=== PATIENT | female | born 1950 | race Hispanic/Latino ===

== ENCOUNTER 2017-12-30 13:57 | Outpatient (CLI) | payer MEDICARE | END 2017-12-30 13:58 | disposition home or self-care (01) | LOC: BICMAMMO 13:57 | PROVIDERS: ATTEND Family Medicine | DX: Z12.31 Encounter for screening mammogram for malignant neoplasm of breast (principal) | CPT/HCPCS: 77063; 77067 ==

== ENCOUNTER 2018-01-29 08:27 | Outpatient (CLI) | payer MEDICARE | END 2018-01-29 08:28 | disposition home or self-care (01) | LOC: BICMAMMO 08:27 | PROVIDERS: ATTEND Internal Medicine Rheumatology | DX: Z13.820 Encounter for screening for osteoporosis (principal); T38.0X1A Poisoning by glucocorticoids and synthetic analogues, accidental (unintentional), initial encounter | CPT/HCPCS: 77080 ==

== ENCOUNTER 2018-04-18 22:22 | Emergency (ER) | payer MEDICARE ==
[2018-04-18] MEDS ORDERED: diphenhydrAMINE 25 MG CAP ONE (22:42)
== END 2018-04-18 22:50 | disposition home or self-care (01) ==
LOC: SCSER 22:22
DX: T78.40XA Allergy, unspecified, initial encounter (principal); R21 Rash and other nonspecific skin eruption; I25.10 Atherosclerotic heart disease of native coronary artery without angina pectoris; E11.9 Type 2 diabetes mellitus without complications; E78.5 Hyperlipidemia, unspecified; I10 Essential (primary) hypertension; Z21 Asymptomatic human immunodeficiency virus [HIV] infection status
CPT/HCPCS: 99282

== ENCOUNTER 2018-12-15 15:07 | Outpatient (CLI) | payer MEDICARE ==
--- NOTE | 2018-12-15 16:26 | RAD ---
LUMBAR SPINE SERIES WITH OBLIQUES 6 VIEWS: HISTORY: Low back pain and right side sciatica. FINDINGS: There is a mild scoliotic deformity to the spine convex to the left. The vertebral bodies are normal in height. There is marked disk narrowing at L2-3, L4-5, and L5-S1. There is a minimal spondylolis thesis of L4 on L5. Flexion and extension views were performed but show little motion in either flex ion or extension. IMPRESSION: Moderately severe osteoarthritic changes of the spine. POS: TPC
== END 2018-12-15 15:08 | disposition home or self-care (01) ==
LOC: BICRAD 15:07
PROVIDERS: ATTEND Internal Medicine Rheumatology
DX: M54.41 Lumbago with sciatica, right side (principal); M47.816 Spondylosis without myelopathy or radiculopathy, lumbar region
CPT/HCPCS: 72100

== ENCOUNTER 2019-02-03 08:36 | Outpatient (CLI) | payer MEDICARE ==
--- NOTE | 2019-02-19 14:35 | MMO ---
Bilateral MAMMO Bilat Screen [facility]JONNATHAN. CLINICAL HISTORY: Patient is 69 years old and is seen for screening. The patient has the following family history of breast cancer: cousin gender unknown. The patient has no personal history of cancer. VIEWS: The views performed were: bilateral craniocaudal with tomosynthesis and bilateral mediolateral oblique with tomosynthesis. FILMS COMPARED: The present examination has been compared to prior imaging studies performed at [facility] on 05/03/2004, 09/21/2010, 12/13/2016 and 12/30/2017, and at [facility][1] on 07/25/2000 and 10/17/2001. MAMMOGRAM FINDINGS: There are scattered fibroglandular densities. There are no suspicious masses, suspicious calcifications, or new areas of architectural distortion. IMPRESSION: THERE IS NO MAMMOGRAPHIC EVIDENCE OF MALIGNANCY. A ROUTINE FOLLOW-UP MAMMOGRAM IN 1 YEAR IS RECOMMENDED. THE RESULTS OF THIS EXAM WERE SENT TO THE PATIENT. ACR BI-RADS Category 1 - Negative MAMMOGRAPHY NOTE: 1. A negative mammogram report should not delay a biopsy if a dominant of clinically suspicious mass is present. 2. Approximately 10% to 15% of breast cancers are not detected by mammography. 3. Adenosis and dense breasts may obscure an underlying neoplasm.
== END 2019-02-03 08:37 | disposition home or self-care (01) ==
LOC: BICMAMMO 08:36
PROVIDERS: ATTEND Family Medicine
DX: Z12.31 Encounter for screening mammogram for malignant neoplasm of breast (principal); Z80.3 Family history of malignant neoplasm of breast
CPT/HCPCS: 77063; 77067

== ENCOUNTER 2019-02-10 10:37 | Outpatient (CLI) | payer MEDICARE ==
--- NOTE | 2019-02-10 11:58 | MRI ---
[facility] lumbar spine: 02/10/2019 COMPARISON: None HISTORY: Low back pain, recent injury in December 2018 TECHNIQUE: Multiplanar multisequence MR imaging of the lumbar spine obtained without contrast FINDINGS: Fluid signal intensity is noted within the facet joints bilaterally at L2-3, L3-4, and L4-5 . No focal area of osseous marrow edema is noted. No significant anterolisthesis or retrolisthesis noted within the lumbar spine. Assuming 5 lumbar type vertebral bodies, the conus medullaris terminates at L1. T12-L1: Unremarkable L1-2: Mild disc space narrowing and disc bulge. Mild bilateral facet hypertrophy. No central canal or neural foraminal stenosis. L2-3: Disc space narrowing and disc desiccation noted with disc bulge and significant bilateral facet hypertrophy. No significant central canal or neural foraminal stenosis. L3-4: Disc space narrowing with disc desiccation and disc bulge. No significant central canal stenosi s. Significant bilateral facet hypertrophy. Moderate right neural foraminal stenosis. No significant left neural foraminal stenosis. L4-5: Disc space narrowing and disc desiccation noted with disc bulge. Superimposed disc herniation i n the left paracentral region with 8 mm of inferior migration. Severe bilateral facet hypertrophy. Fi ndings lead to severe central canal stenosis/severe left lateral recess stenosis. Moderate left neura l foraminal stenosis. Mild right neural foraminal stenosis. L5-S1: Bilateral facet hypertrophy, left greater than right. There is disc space narrowing and disc d esiccation and disc bulge with a small left paracentral disc herniation demonstrating mild inferior m igration. Mild associated left lateral recess stenosis. No significant central canal or right neural foraminal stenosis. Mild left neural foraminal stenosis noted. The imaged retroperitoneal structures appear grossly unremarkable. IMPRESSION: Severe multilevel degenerative change, most significant at L4-5 where there is severe jean-paul tral canal stenosis and severe left lateral recess stenosis associated with disc bulge, bilateral fac et hypertrophy, and prominent left paracentral disc herniation with inferior migration. Prominent mul tilevel facet hypertrophy with fluid within the facet joints may signify instability, which would be better assessed with flexion and extension radiographs.
== END 2019-02-10 10:38 | disposition home or self-care (01) ==
LOC: BICMRI 10:37
PROVIDERS: ATTEND Family Medicine
DX: M51.26 Other intervertebral disc displacement, lumbar region (principal); M47.816 Spondylosis without myelopathy or radiculopathy, lumbar region; M48.061 Spinal stenosis, lumbar region without neurogenic claudication
CPT/HCPCS: 72148

== ENCOUNTER 2019-03-05 12:40 | Outpatient (CLI) | payer MEDICARE ==
--- NOTE | 2019-03-05 13:37 | RAD ---
THREE VIEWS OF THE LUMBOSACRAL SPINE: HISTORY: Bilateral leg pain and pain in her back. FINDINGS: Lateral views of the lumbosacral spine were performed in neutral, flexion, and extension. The L2-L3 intervertebral disk is narrowed. There are small osteophytes throughout the lumbar spine. Alignment is unchanged with flexion and extension. IMPRESSION: Degenerative changes of the lumbar spine are unchanged in alignment with bending. POS: TPC
== END 2019-03-05 12:41 | disposition home or self-care (01) ==
LOC: TBSIIMAG 12:40
PROVIDERS: ATTEND Neurological Surgery
DX: M51.16 Intervertebral disc disorders with radiculopathy, lumbar region (principal); M47.26 Other spondylosis with radiculopathy, lumbar region
CPT/HCPCS: 72100

== ENCOUNTER 2019-05-07 01:34 | Outpatient (CLI) | payer MEDICARE ==
[2019-05-07 11:32] LABS: Hemoglobin 12.6 g/dL (12.0-16.0); Mean Corpuscular Hemoglobin 28.4 pg (27.0-31.0); Mean Corpuscular Volume 88.6 fL (78.0-98.0); Mean Platelet Volume 8.1 fL (7.4-10.4); Platelet Count 258 thou/uL (130-400); RBC Distribution Width 13.3 % (11.5-14.5); Red Blood Cell (RBC) Count 4.45 mill/uL (4.20-5.40); White Blood Cell (WBC) Count 6.5 thou/uL (4.8-10.8)
[2019-05-07 11:45] LABS: PTT 26.5 SEC (22.9-36.1); Prothrombin Time 12.8 SEC (12.0-14.7)
[2019-05-07 12:13] LABS: Anion Gap 15 mmol/L (10-20); BUN (Urea Nitrogen) 10 mg/dL (9.8-20.1); Calc. Creatinine Clearance 0 mL/min (70-130); Calcium 9.2 mg/dL (7.8-10.44); Carbon Dioxide 22 mmol/L (23-31); Chloride 105 mmol/L (98-107); Estimated GFR-MDRD 79; Glucose 162 mg/dL (80-115); Potassium 4.1 mmol/L (3.5-5.1); Sodium 138 mmol/L (136-145)
== END 2019-05-07 01:35 | disposition home or self-care (01) ==
LOC: LABBT 01:34
PROVIDERS: ATTEND Neurological Surgery
DX: Z01.812 Encounter for preprocedural laboratory examination (principal); M51.16 Intervertebral disc disorders with radiculopathy, lumbar region; M43.16 Spondylolisthesis, lumbar region
CPT/HCPCS: 80048; 85027; 85610; 85730; 87081

== ENCOUNTER 2019-05-07 09:30 | Inpatient (IN) | payer MEDICARE ==
[2019-05-07 10:07] VITALS: BMI 29.8
[2019-05-11] MEDS ORDERED: Bupivacaine HCl 0.5%/Epinephrine 1:200,000/PF 30 ml Vial ONE (06:20)
[2019-05-11] MEDS ORDERED: Sodium Chloride 0.9% 20 ML ONE (06:20)
[2019-05-11] MEDS ORDERED: Thrombin 5000 UNITS/5 ML VIAL ONE (06:20)
[2019-05-11] MEDS ORDERED: Ketamine 50 MG/ML (10ML VIAL) ONE (06:45)
[2019-05-11] MEDS ORDERED: Fentanyl 250 MCG/5 ML VIAL ONE (06:45)
[2019-05-11] MEDS ORDERED: HYDROmorphone 2 MG/ML VIAL SLOW IVP PRN (10:50)
[2019-05-11] MEDS ORDERED: PACU-Morphine 4MG/ML VIAL SLOW IVP PRN (10:50)
[2019-05-11] MEDS ORDERED: Promethazine HCl 25 MG/ML VIAL IM PRN ×2 (10:50→11:49)
[2019-05-11] MEDS ORDERED: Promethazine HCl 25 MG/ML VIAL SLOW IVP PRN (10:50)
[2019-05-11] MEDS ORDERED: Morphine Sulfate 2 MG/ML SYRINGE SLOW IVP PRN (10:50)
[2019-05-11] MEDS ORDERED: Ondansetron HCl/PF 4 MG/2 ML Vial IVP PRN (10:50)
--- NOTE | 2019-05-11 11:29 | HP ---
HISTORY OF PRESENT ILLNESS: Ms. Millard is a 69-year-old female, who reports to our office for evaluation of lower back and left greater than right leg pain. She states that starting in December, she began to have some right leg pain. With physical therapy and injection, she has had significant left leg pain along the L5 distribution. She describes numbness and tingling on top of her foot. This all started following a short fall from a ladder and following a washing machine being dropped on her. The patient states that physical therapy seemed to make things worse, no better with trigger point injections. The patient has history of rheumatoid arthritis. REVIEW OF SYSTEMS: A 10-point review of systems has been completed and is negative other than stated in the above HPI. PAST MEDICAL HISTORY: HIV positive diagnosed in by Dr. Lopez, rheumatoid arthritis, unstable angina, diabetic, hyperlipidemia, GERD, hypertension, perforation of left ear. PAST SURGICAL HISTORY: Hysterectomy 1976, cardiac stents x2 in 2011, foot surgery, cystoscope and bladder wash. FAMILY HISTORY: Father is , diagnosed with heart disease and stroke. Mother is , diagnosed with diabetes, hypertension, and heart disease. SOCIAL HISTORY: The patient quit smoking in 2007. She drinks alcohol on occasion. She is not sexually active. ALLERGIES: SULFAMETHOXAZOLE. PHYSICAL EXAMINATION: CONSTITUTIONAL: Well appearing, well nourished, alert. NEUROLOGIC: Awake, alert, oriented x3. Speech is spontaneous and fluent. Normal fund of knowledge. Cranial nerves grossly intact. Lower extremities 5/5 bilateral strength, hip flexion, knee flexion, knee extension, plantar flexion, 4/5 left dorsiflexion, EHL. Left L5 radiculopathy. Positive left single leg raise. Hip rotation normal bilaterally. Tender to palpate lumbar spine. Deep tendon reflexes diminished bilaterally. Negative Babinski. No clonus. Sensory, light touch intact. Gait and station; sit to stand slow. Wheelchair and walker at home. IMAGING: MRI, moderate stenosis L2-L3, L3-L4, large stenosis of L4-L5, disk left greater than right, L5-S1. Flexion-extension standing produces an L4-L5 listhesis, worse with flexion. ASSESSMENT AND PLAN: Herniated pulposus of the lumbar with spondylolisthesis and subluxation with stenosis of the neural canal of the lumbar region. Dr. Aguilera has offered surgery L4 through S1 laminectomy with L4-L5 fusion. The patient states that she understands the risks and is willing to proceed. Job ID: [id number]
[2019-05-11] MEDS ORDERED: tiZANidine HCl 4 MG TAB PO PRN (11:49)
[2019-05-11] MEDS ORDERED: Ondansetron PF 4 MG/2 ML Vial IVP PRN (11:49)
[2019-05-11] MEDS ORDERED: diphenhydrAMINE 25 MG CAP PO PRN (11:49)
[2019-05-11] MEDS ORDERED: Acetaminophen 325 MG TAB PO PRN (11:49)
[2019-05-11] MEDS ORDERED: Milk Of Magnesia 30 ML UDCUP PO PRN ×2 (11:49→16:54)
[2019-05-11] MEDS ORDERED: Bisacodyl 10 MG SUPP PR PRN (11:49)
[2019-05-11] MEDS ORDERED: diphenhydrAMINE 50 MG/ML VIAL IVP PRN (11:49)
[2019-05-11] MEDS ORDERED: Prochlorperazine 10 MG/2 ML VIAL IM PRN (11:49)
[2019-05-11] MEDS ORDERED: Morphine 4 MG/ML VIAL SLOW IVP PRN (11:49)
[2019-05-11] MEDS ORDERED: Mag-Al 1200 mg/1200 mg/30 ML UDCUP PO PRN (11:49)
[2019-05-11] MEDS ORDERED: CEFAZOLIN 2 GM in Premix Bag 1 BAG IVPB SCH (12:00)
--- NOTE | 2019-05-11 12:38 | OP ---
DATE OF PROCEDURE: 05/11/2019 RESIDENTIAL ROOFER: Aleyda Redd PA-C PREOPERATIVE INDICATION: Treat pain and prevent neurological deterioration. PREOPERATIVE DIAGNOSIS: Severe lumbar stenosis with neurogenic claudication at L4-5 and lateral recess disease at L5-S1, unstable listhesis at L4-5. POSTOPERATIVE DIAGNOSIS: Severe lumbar stenosis with neurogenic claudication at L4-L5 and lateral recess disease at L5-S1, unstable listhesis at L4-L5. OPERATIVE PROCEDURES: Decompressive laminectomy, medial facetectomy, foraminotomy at L4-L5 and L5-S1, transforaminal lumbar interbody arthrodesis at L4-L5, placement of intervertebral biomechanical device at L4-L5, pedicle screw and berna instrumentation at L4-L5, posterolateral arthrodesis L4-L5; local morselized autograft, morselized allograft, and operating microscope. PREOPERATIVE MEDICATION: Ancef 2 g IV. DRAIN NUMBER: Zero. DRAIN TYPE: None. DESCRIPTION OF PROCEDURE: The patient was brought to the operating room. General endotracheal anesthesia was induced. The patient was carefully positioned on the Wyatt frame with the appropriate padding for the chest and hips. A lateral fluoro radiograph was used to plan our incision. The lumbar skin was sterilely prepped and draped. We opened a midline incision with a 10 blade knife and controlled bleeding with bipolar and monopolar cautery. We used monopolar cautery to dissect through subcutaneous tissues to the thoracodorsal fascia. We incised the fascia in the midline and reflected the paraspinal muscles off the spinous process and the lamina of L4-L5 and the superior portion of the sacrum. A self-retaining retractor was placed and we took a lateral fluoro radiograph to confirm the levels upon which we were operating. Thereafter, we dissected over the facet joints at L3-L4 and L4-L5 to identify the transverse processes of L4 and L5 bilaterally. We irrigated copiously with bacitracin irrigation. With self-retaining retractors in place, we started our decompression. Using an Adson rongeur. We removed the spinous processes of L4-L5 and the superior portion of the sacrum. Kerrison rongeurs were used to fashion a laminectomy down the midline. We widened our laminectomy defect using Kerrisons until we were in line with the medial border of the pedicle at L4, L5 and S1. An operating microscope was brought in the field. Under microscopic magnification using microsurgical techniques, we carefully retracted the thecal sac medially at L4-L5 and L5-S1. We incised the membrane over intervertebral disk herniation in the ventral epidural space and removed the herniated disk in both of these interspaces to ensure the L5 and S1 nerve roots were no longer stretched. We turned our attention to arthrodesis. We opened up the foramen at L4-L5 on the left by removing the inferior articular process of L4. Through the foramen, we accessed the disk space and removed disk contents using curettes and rongeurs. We measured the height of the interspace to 10 mm. We prepared the endplates for grafting with curettes and then brought a 10 mm PEEK intervertebral graft into the field. Our laminectomy bone was cleaned of soft tissue attachments, morcellized, and added into demineralized bone matrix as our fusion substrate. The substrate was placed inside the PEEK graft and the graft was advanced into the interspace under radiographic guidance to the appropriate depth. The operative microscope taken out of the field. Using bony anatomic landmarks, palpation of the medial portion of the pedicles, and a lateral fluoro radiograph as our guide, we chose entry points for pedicle screws at L4 and L5 bilaterally. We drilled these out and then used a bone awl to create our trajectory. We tapped each trajectory with a threaded tap and then probed them. The probe confirmed they were completely encased in bone. We placed 6.5 mm diameter screws into the pedicles at L4 and L5 bilaterally. A 360-degree image set was generated using our isocentric C-arm. This confirmed adequate position of our pedicle screw instrumentation. We irrigated copiously with bacitracin irrigation. We placed rods down into the screw heads and tightened caps over the rods using a torque/counter-torque mechanism. Before final tightening, we applied gentle compression across the interspace to keep our interbody graft in place. With the high-speed drill, we decorticated the transverse processes of L4 and L5 bilaterally and over the decorticated bone, we left demineralized bone matrix, and morselized autograft as our posterior lateral fusion substrate. We then ensured that all the nerve roots were still well decompressed by performing foraminotomies. We waxed the bone edges. We treated the wound with vancomycin powder after copious amounts of bacitracin irrigation. We infused local anesthetic in the paraspinal muscles. We closed in anatomical layers. This was a clean case, no contamination. Job ID: [id number]
[2019-05-11] MEDS: Sodium Chloride 0.9% 1,000 ML IV SCH (14:15)
[2019-05-11] MEDS: CEFAZOLIN 2 GM in Premix Bag 1 BAG IVPB SCH ×2 (15:26→22:03)
[2019-05-11] MEDS: Acetaminophen/Codeine 30-300mg Tablet PO PRN ×2 (15:27→20:56)
[2019-05-11] MEDS ORDERED: PROPOFOL 200 MG/20 ML VIAL ONE (16:31)
[2019-05-11] MEDS ORDERED: PHENYLEPHRINE-NS 100 MCG/ML 10 ML SYRINGE ONE (16:31)
[2019-05-11] MEDS ORDERED: ePHEDrine 50 MG/ML VIAL ONE (16:31)
[2019-05-11] MEDS ORDERED: Ondansetron PF 4 MG/2 ML Vial ONE (16:31)
[2019-05-11] MEDS ORDERED: Lidocaine 1% PF 5 ML VIAL ONE (16:31)
[2019-05-11] MEDS ORDERED: Metoclopramide HCl 10 MG/2 ML VIAL ONE (16:31)
[2019-05-11] MEDS ORDERED: Dexamethasone 20 MG/5 ML VIAL ONE (16:31)
[2019-05-11] MEDS ORDERED: Glycopyrrolate 0.2 MG/ML 5 ML SYRINGE ONE (16:31)
[2019-05-11] MEDS ORDERED: Rocuronium Bromide 10 MG/ML (10ML VIAL) ONE (16:31)
[2019-05-11] MEDS ORDERED: Dextrose 50% Abboject 50 ML SYRINGE SLOW IVP PRN (16:53)
[2019-05-11] MEDS ORDERED: Insulin Regular 300 UNITS/3 ML VIAL SC PRN (16:53)
[2019-05-11] MEDS ORDERED: Dextrose 5% in Water 1,000 ML IV PRN (16:53)
[2019-05-11] MEDS ORDERED: Polyethylene Glycol 3350 17 GM Packet PO PRN (16:54)
--- NOTE | 2019-05-11 17:10 | CON ---
DATE OF CONSULTATION: ATTENDING PHYSICIAN: Brando Avalos MD. REASON FOR CONSULTATION: Medical management. HISTORY OF PRESENT ILLNESS: The patient is a 69-year-old female with diabetes mellitus type 2, rheumatoid arthritis, coronary artery disease, hypertension, hyperlipidemia, and HIV, who underwent decompressive laminectomy by Dr. Aguilera earlier today. Hospitalist Team was consulted for medical management. At this time, the patient denies any chest pain, shortness of breath, palpitations, or new focal neurologic deficit. Pain is controlled at this time. No nausea or vomiting reported. PAST MEDICAL HISTORY: 1. Rheumatoid arthritis, followed by Dr. Baltazar. 2. Coronary artery disease, followed by Dr. Alberto. 3. HIV, followed by Dr. Lopez. 4. Diabetes mellitus, type 2. 5. Hypertension. 6. GERD. 7. Hyperlipidemia. PAST SURGICAL HISTORY: 1. Hysterectomy in 1976. 2. Coronary stent placement in 2011. 3. Foot surgery. 4. Cystoscopy in 2015. ALLERGIES: THE PATIENT IS ALLERGIC TO BACTRIM THAT CAUSES HIVES. CURRENT HOME MEDICATIONS: 1. Aspirin 81 mg daily, which is currently on hold. 2. Celebrex 200 mg b.i.d. 3. Atripla one tablet at bedtime. 4. Flonase daily. 5. Gabapentin 300 mg b.i.d. 6. Lisinopril 10 mg daily. 7. Metformin 500 mg b.i.d. 8. Toprol-XL 50 mg daily. 9. Singulair 10 mg at bedtime. 10. Omeprazole 40 mg daily. 11. Pravastatin 40 mg at bedtime. 12. Prednisone 1 mg b.i.d. 13. Other yple-tir-ieapxcc supplement. SOCIAL HISTORY: The patient currently lives at home with her . She is full code. She makes her own decision with the help of her . She is a former smoker, quit in 2008. FAMILY HISTORY: Positive for heart disease. REVIEW OF SYSTEMS: All other review of systems were reviewed and were found negative. PHYSICAL EXAMINATION: VITAL SIGNS: Temperature 97.7, pulse rate of 69, respirations of 18, blood pressure of 151/63, and O2 saturation 97% on room air. GENERAL: A 69-year-old female, in no apparent distress. Pain controlled. Has some sore throat. NECK: Supple. No JVD appreciated. No carotid bruit. LUNGS: Clear to auscultation bilaterally. No wheezing, rales, or rhonchi. HEART: S1 and S2 present. Regular rate and rhythm. No murmurs, rubs, or gallops appreciated. ABDOMEN: Soft and nontender. Bowel sounds present. EXTREMITIES: No edema or calf tenderness. NEUROLOGIC: Grossly nonfocal. Moves all 4 extremities. PSYCHIATRY: Alert, awake, and oriented x3. SKIN: Warm and dry. LYMPH NODE: No palpable lymph nodes in the neck. PERIPHERAL VASCULAR: Radial pulses palpable bilaterally. MUSCULOSKELETAL: No joint swelling or tenderness. LABORATORY FINDINGS: WBC 6.5 with hemoglobin 12.6, hematocrit 39.4, and platelet 258. Chemistry showed sodium 138, potassium 4.1, chloride 105, bicarb 22, BUN 10, creatinine 0.73, and glucose of 162. IMAGING DATA: EKG by my review showed sinus rhythm. Lumbar spine x-ray from earlier this year showed degenerative disease. IMPRESSION: 1. Lumbar degenerative joint disease, status post laminectomy. 2. Rheumatoid arthritis. 3. Coronary artery disease, status post stent placement. 4. Diabetes mellitus, type 2. 5. Hypertension. 6. Hyperlipidemia. 7. Gastroesophageal reflux disease. 8. Human immunodeficiency virus. 9. Chronic kidney disease, stage 2. 10. Seasonal allergies. PLAN: We will continue IV fluids until tolerating p.o. Metformin will be continued. We will start low-dose sliding scale. We will continue lisinopril for blood pressure. Prednisone has been restarted by Neurosurgery. We will continue statins. Atripla will be restarted tonight. Aspirin is currently on hold. We will continue metoprolol and PPIs. Plan of care was discussed with the patient and the family at the bedside. They stated understanding. Physical Therapy and Occupational Therapy have been consulted. Thank you for this consultation. We will follow with you. Job ID: [id number]
[2019-05-11] MEDS: Insulin Regular 300 UNITS/3 ML VIAL SC PRN (18:05)
[2019-05-11] MEDS: metFORMIN 500 MG TAB PO SCH (18:07)
[2019-05-11] MEDS: Senokot S 8.6-50 MG TAB PO SCH (20:55)
[2019-05-11] MEDS: Gabapentin 100 MG CAP PO SCH (20:56)
[2019-05-11] MEDS: Emtricitabine/Tenofovir 200-300 MG TAB PO SCH (20:57)
[2019-05-11] MEDS: Montelukast Sodium 10 mg Tablet PO SCH (20:57)
[2019-05-11] MEDS: Atorvastatin Calcium 10 MG TAB PO SCH (20:57)
[2019-05-11] MEDS: predniSONE 1 MG TAB PO SCH (20:58)
[2019-05-11] MEDS: CeleCOXIB 100 MG CAP PO SCH (20:58)
[2019-05-12] MEDS: Acetaminophen/Codeine 30-300mg Tablet PO PRN ×2 (01:14→05:36)
[2019-05-12] MEDS: Sodium Chloride 0.9% 1,000 ML IV SCH ×2 (01:59→11:52)
[2019-05-12] MEDS: Insulin Regular 300 UNITS/3 ML VIAL SC PRN ×3 (05:35→17:03)
[2019-05-12] MEDS ORDERED: Lisinopril 10 MG TAB PO SCH (09:00)
[2019-05-12] MEDS: metFORMIN 500 MG TAB PO SCH ×2 (09:05→16:16)
[2019-05-12] MEDS: Polyethylene Glycol 3350 17 GM Packet PO SCH (09:10)
[2019-05-12] MEDS: Gabapentin 100 MG CAP PO SCH ×2 (09:10→20:34)
[2019-05-12] MEDS: CeleCOXIB 100 MG CAP PO SCH ×2 (09:11→20:34)
[2019-05-12] MEDS: predniSONE 1 MG TAB PO SCH ×2 (09:11→20:35)
[2019-05-12] MEDS: Senokot S 8.6-50 MG TAB PO SCH ×2 (09:11→20:38)
[2019-05-12] MEDS: Lisinopril 10 MG TAB PO SCH (09:15)
[2019-05-12] MEDS ORDERED: Morphine 2 MG/ML SYRINGE SLOW IVP PRN (09:28)
--- NOTE | 2019-05-12 09:54 | PRG ---
DATE OF SERVICE: 05/12/2019 Ms. Millard is one day out from decompression and fusion of lumbar spine. Her legs feel better than they did before surgery. Her back is sore. She has been afebrile overnight and her vital signs are stable. I do not find any new neurological deficit. The plan today is to mobilize with physical therapy. If she needs inpatient rehabilitation, we can start the process of evaluation now and if she is independent for activities of daily living, she might be able to be discharged. Job ID: [id number]
[2019-05-12] MEDS: Fluticasone Propionate Nasal Spray 16 gm Bottle NASAL SCH (10:36)
[2019-05-12] MEDS ORDERED: Sodium Chloride 0.9% 1,000 ML IV SCH (13:06)
--- NOTE | 2019-05-12 13:08 | PDOC.PN ---
- Subjective Encounter Start Date: 05/12/19 (f/u DM) Encounter Start Time: 13:06 Subjective: Pt c/o low appetite, is concerned about blood pressure and blood -: sugar. Having pain. Denies any other concerns - Objective Vital Signs & Weight: Vital Signs (12 hours) Temp Pulse Resp BP BP Pulse Ox 05/12/19 11:27 98.3 F 89 20 117/52 L 95 05/12/19 09:15 114/49 L 05/12/19 08:10 95 05/12/19 07:28 98.6 F 90 20 113/49 L 95 05/12/19 04:00 98.5 F 96 16 94/44 L 96 05/12/19 01:16 114/53 L Weight Weight 158 lb I&O: 05/11/19 05/12/19 05/13/19 06:59 06:59 06:59 Intake Total 580 Balance 580 Additional Labs: Accuchecks 05/12/19 05/12/19 05/11/19 11:28 05:21 20:28 POC Glucose 219 H 174 H 195 H 05/11/19 17:40 POC Glucose 206 H Phys Exam - Physical Examination Constitutional: NAD Respiratory: no wheezing, no rales, no rhonchi Cardiovascular: RRR 2/6 GIORGIO Gastrointestinal: soft, non-tender, no distention, positive bowel sounds Musculoskeletal: no edema Psychiatric: normal affect Dx/Plan (1) Diabetes mellitus Code(s): E11.9 - TYPE 2 DIABETES MELLITUS WITHOUT COMPLICATIONS Status: Chronic Qualifiers: Diabetes mellitus type: type 2 Diabetes mellitus complication status: without complication (2) Rheumatoid arthritis Code(s): M06.9 - RHEUMATOID ARTHRITIS, UNSPECIFIED Status: Chronic (3) HIV (human immunodeficiency virus infection) Code(s): B20 - HUMAN IMMUNODEFICIENCY VIRUS [HIV] DISEASE Status: Chronic (4) GERD (gastroesophageal reflux disease) Code(s): K21.9 - GASTRO-ESOPHAGEAL REFLUX DISEASE WITHOUT ESOPHAGITIS Status: Chronic (5) Dyslipidemia Code(s): E78.5 - HYPERLIPIDEMIA, UNSPECIFIED Status: Chronic (6) Hypertension Code(s): I10 - ESSENTIAL (PRIMARY) HYPERTENSION Status: Chronic Qualifiers: Hypertension type: essential hypertension Qualified Code(s): I10 - Essential (primary) hypertension - Plan * s/p surgery - per NS team * HTN - low bp's - hold parameters placed on metoprolol and lisinopril * slow IVF slightly to avoid overload, pt is drinking water * DM - not optimally controlled * on metformin * add lantus 10 units at night. * check cbc and metabolic panel * pt on most home meds - reviewed and agree * * dvt prophy - scd's * gi prophy- not indicated * * reviewed plan of care with patient, no questions or further needs at end of eval
[2019-05-12 13:26] LABS: #Eosinphils 0.1 thou/uL (0.0-0.7); #Lymphocytes 1.1 thou/uL (1.20-3.40); #Monocytes 0.7 thou/uL (0.11-0.59); #Neutrophils 5.8 thou/uL (1.40-6.50); %Lymphocytes 14.8 % (21.0-51.0); %Monocytes 9.3 % (0.0-10.0); %Neutrophils 74.9 % (42.0-75.0); Hemoglobin 10.5 g/dL (12.0-16.0); Mean Corpuscular HGB CONC 31.9 g/dL (32.0-36.0); Mean Corpuscular Hemoglobin 29.3 pg (27.0-31.0); Mean Corpuscular Volume 91.9 fL (78.0-98.0); Platelet Count 179 thou/uL (130-400); RBC Distribution Width 13.6 % (11.5-14.5); Red Blood Cell (RBC) Count 3.58 mill/uL (4.20-5.40); White Blood Cell (WBC) Count 7.7 thou/uL (4.8-10.8)
[2019-05-12 14:15] LABS: Anion Gap 13 mmol/L (10-20); BUN (Urea Nitrogen) 7 mg/dL (9.8-20.1); Calc. Creatinine Clearance 85 mL/min (70-130); Calcium 8.3 mg/dL (7.8-10.44); Carbon Dioxide 17 mmol/L (23-31); Chloride 109 mmol/L (98-107); Estimated GFR-MDRD 81; Glucose 165 mg/dL (80-115); Potassium 4.1 mmol/L (3.5-5.1); Sodium 135 mmol/L (136-145)
[2019-05-12] MEDS: Atorvastatin Calcium 10 MG TAB PO SCH (20:34)
[2019-05-12] MEDS: Montelukast Sodium 10 mg Tablet PO SCH (20:34)
[2019-05-12] MEDS: Emtricitabine/Tenofovir 200-300 MG TAB PO SCH (20:34)
[2019-05-12] MEDS ORDERED: Insulin Glargine 10 UNITS in Pre-Filled Syringe SC SCH (21:00)
--- NOTE | 2019-05-12 21:28 | PDOC.EVN ---
Event Note - Event Note Event Note: Reviewed vital signs and pulse is elevated and blood pressure is increasing. Home meds were held this morning due to low bp's. Called nurse and discussed using one dose of short acting metoprolol now, and then resuming her usual long- acting metoprolol in the morning as scheduled. No questions or further needs at end of call. RN will discuss plan with patient.
[2019-05-12] MEDS ORDERED: Metoprolol Tartrate 50 MG TAB PO SCH (21:30)
[2019-05-13 05:14] LABS: #Eosinphils 0.2 thou/uL (0.0-0.7); #Lymphocytes 1.9 thou/uL (1.20-3.40); #Monocytes 0.9 thou/uL (0.11-0.59); #Neutrophils 7.2 thou/uL (1.40-6.50); %Basophils 0.1 % (0.0-1.0); %Eosinophils 1.5 % (0.0-10.0); %Lymphocytes 18.4 % (21.0-51.0); %Monocytes 9.1 % (0.0-10.0); Hemoglobin 10.5 g/dL (12.0-16.0); Mean Corpuscular HGB CONC 32.7 g/dL (32.0-36.0); Mean Corpuscular Hemoglobin 29.8 pg (27.0-31.0); Mean Platelet Volume 7.3 fL (7.4-10.4); Platelet Count 245 thou/uL (130-400); RBC Distribution Width 13.3 % (11.5-14.5); Red Blood Cell (RBC) Count 3.51 mill/uL (4.20-5.40); White Blood Cell (WBC) Count 10.2 thou/uL (4.8-10.8)
[2019-05-13 05:32] LABS: Anion Gap 9 mmol/L (10-20); BUN (Urea Nitrogen) 9 mg/dL (9.8-20.1); Calc. Creatinine Clearance 86 mL/min (70-130); Calcium 9.1 mg/dL (7.8-10.44); Carbon Dioxide 25 mmol/L (23-31); Chloride 106 mmol/L (98-107); Estimated GFR-MDRD 82; Glucose 134 mg/dL (80-115); Potassium 3.4 mmol/L (3.5-5.1); Sodium 137 mmol/L (136-145)
[2019-05-13] MEDS: CeleCOXIB 100 MG CAP PO SCH ×2 (08:55→20:18)
[2019-05-13] MEDS: Gabapentin 100 MG CAP PO SCH ×2 (08:55→20:19)
[2019-05-13] MEDS: Senokot S 8.6-50 MG TAB PO SCH ×2 (08:55→20:23)
[2019-05-13] MEDS: metFORMIN 500 MG TAB PO SCH ×2 (08:56→17:15)
[2019-05-13] MEDS: Fluticasone Propionate Nasal Spray 16 gm Bottle NASAL SCH (08:56)
[2019-05-13] MEDS: Polyethylene Glycol 3350 17 GM Packet PO SCH ×2 (08:57→09:02)
[2019-05-13] MEDS: Lisinopril 10 MG TAB PO SCH (08:58)
[2019-05-13] MEDS: predniSONE 1 MG TAB PO SCH ×2 (09:08→20:21)
--- NOTE | 2019-05-13 09:59 | PRG ---
DATE OF SERVICE: 05/13/2019 Ms. Millard is 2 days out from decompression and fusion of lumbar spine. She got up out of bed yesterday and walked to the door of her room. She did not make it the hallway at. She feels better this morning than she did yesterday and each day shows some degree of improvement. Physical Therapy is working with her as I am at the bedside. Her vitals have been remained stable with no fevers and blood pressure is in the upper 90s to 130s. I do not find any new neurological deficit. Ms. Millard will be mobilized today with physical therapy. Already, Case Management is looked into rehab placement, and I think that is a reasonable idea. If the bed opens up and she is a good candidate, we can transfer her as early as today or tomorrow. Job ID: [id number]
[2019-05-13] MEDS: Insulin Regular 300 UNITS/3 ML VIAL SC PRN ×2 (11:38→17:14)
--- NOTE | 2019-05-13 14:32 | PDOC.PN ---
- Subjective Encounter Start Date: 05/13/19 (f/u DM) Encounter Start Time: 14:30 Subjective: Pt reports she is feeling better. Denies any complaints. - Objective Vital Signs & Weight: Vital Signs (12 hours) Temp Pulse Resp BP BP Pulse Ox 05/13/19 11:15 98.0 F 91 18 112/58 L 93 L 05/13/19 08:58 121/67 05/13/19 08:30 98 05/13/19 08:10 98.1 F 84 18 121/67 98 05/13/19 03:38 98.0 F 76 16 107/49 L 95 Weight Weight 158 lb I&O: 05/12/19 05/13/19 05/14/19 06:59 06:59 06:59 Intake Total 580 1690 Balance 580 1690 Result Diagrams: 05/13/19 04:56 05/13/19 04:56 Additional Labs: Accuchecks 05/13/19 05/13/19 05/12/19 11:27 05:43 20:35 POC Glucose 178 H 126 H 157 H 05/12/19 16:48 POC Glucose 225 H Phys Exam - Physical Examination Constitutional: NAD Respiratory: no wheezing, no rales, no rhonchi, clear to auscultation bilateral Cardiovascular: RRR, no significant murmur Gastrointestinal: soft, non-tender, no distention, positive bowel sounds Neurological: non-focal Psychiatric: normal affect Dx/Plan (1) Diabetes mellitus Code(s): E11.9 - TYPE 2 DIABETES MELLITUS WITHOUT COMPLICATIONS Status: Chronic Qualifiers: Diabetes mellitus type: type 2 Diabetes mellitus complication status: without complication (2) Rheumatoid arthritis Code(s): M06.9 - RHEUMATOID ARTHRITIS, UNSPECIFIED Status: Chronic (3) HIV (human immunodeficiency virus infection) Code(s): B20 - HUMAN IMMUNODEFICIENCY VIRUS [HIV] DISEASE Status: Chronic (4) GERD (gastroesophageal reflux disease) Code(s): K21.9 - GASTRO-ESOPHAGEAL REFLUX DISEASE WITHOUT ESOPHAGITIS Status: Chronic (5) Dyslipidemia Code(s): E78.5 - HYPERLIPIDEMIA, UNSPECIFIED Status: Chronic (6) Hypertension Code(s): I10 - ESSENTIAL (PRIMARY) HYPERTENSION Status: Chronic Qualifiers: Hypertension type: essential hypertension Qualified Code(s): I10 - Essential (primary) hypertension - Plan * s/p surgery - per NS team * HTN - improved today * recommend hold metoprolol if bp less than 110/60 or pulse less than 60 * recommend hold lisinopril if bp less than 120/60 * DM - improved today - recommend continue AC/HS accuchecks at rehab for good glucose control * continue metformin * continue SSI * hold further lantus as anticipate blood sugars will decline post-op. Pt does not need rx for long-acting insulin at rehab * replace potassium * pt on most home meds - reviewed and agree * * dvt prophy - scd's * gi prophy- not indicated * * reviewed plan of care with patient, no questions or further needs at end of eval. * can be discharged per NS team.
[2019-05-13] MEDS ORDERED: Potassium Chloride 20 MEQ TAB PO SCH (17:00)
[2019-05-13] MEDS: Promethazine 25 MG TAB PO PRN (19:07)
[2019-05-13] MEDS: Atorvastatin Calcium 10 MG TAB PO SCH (20:19)
[2019-05-13] MEDS: Montelukast Sodium 10 mg Tablet PO SCH (20:21)
[2019-05-13] MEDS: Emtricitabine/Tenofovir 200-300 MG TAB PO SCH (20:21)
[2019-05-14 05:45] LABS: Anion Gap 11 mmol/L (10-20); BUN (Urea Nitrogen) 8 mg/dL (9.8-20.1); Calc. Creatinine Clearance 95 mL/min (70-130); Calcium 8.5 mg/dL (7.8-10.44); Carbon Dioxide 23 mmol/L (23-31); Chloride 106 mmol/L (98-107); Estimated GFR-MDRD Greater than 90; Glucose 120 mg/dL (80-115); Potassium 3.9 mmol/L (3.5-5.1); Sodium 136 mmol/L (136-145)
[2019-05-14] MEDS: Acetaminophen/Codeine 30-300mg Tablet PO PRN (05:46)
--- NOTE | 2019-05-14 07:58 | PRG ---
DATE OF SERVICE: 05/14/2019 This is neurosurgery progress note. I saw Ms. Millard in her hospital room this morning. She worked with physical therapy yesterday and admitted all the way down the schaeffer, almost around the entire floor. She has some left groin discomfort this morning, which she says is probably from positioning in her bed. She has inflammatory arthritis, for which she takes medication, but she has not had hip joint pain in the past. Ms. Millard is ready for inpatient rehabilitation. If you have a bed available to her today, we can make a transfer. Job ID: [id number]
[2019-05-14] MEDS: CeleCOXIB 100 MG CAP PO SCH ×2 (08:37→20:14)
[2019-05-14] MEDS: metFORMIN 500 MG TAB PO SCH ×2 (08:37→16:31)
[2019-05-14] MEDS: Gabapentin 100 MG CAP PO SCH ×2 (08:37→20:13)
[2019-05-14] MEDS: predniSONE 1 MG TAB PO SCH ×2 (08:37→20:13)
[2019-05-14] MEDS: Lisinopril 10 MG TAB PO SCH (08:38)
[2019-05-14] MEDS: Fluticasone Propionate Nasal Spray 16 gm Bottle NASAL SCH (08:41)
[2019-05-14] MEDS: Polyethylene Glycol 3350 17 GM Packet PO SCH (08:42)
[2019-05-14] MEDS: Senokot S 8.6-50 MG TAB PO SCH ×2 (08:42→20:20)
--- NOTE | 2019-05-14 17:17 | PDOC.PN ---
- Subjective Encounter Start Date: 05/14/19 Encounter Start Time: 15:00 Subjective: pt up in bed no complains - Objective Vital Signs & Weight: Vital Signs (12 hours) Temp Pulse Resp BP BP BP Pulse Ox 05/14/19 16:05 98.8 F 79 14 141/66 H 96 05/14/19 12:20 98.2 F 83 16 129/50 L 95 05/14/19 08:38 127/94 H 05/14/19 08:35 94 L 05/14/19 07:34 98.4 F 90 16 127/94 H 94 L Weight Weight 158 lb I&O: 05/13/19 05/14/19 05/15/19 06:59 06:59 06:59 Intake Total 1690 1000 550 Balance 1690 1000 550 Result Diagrams: 05/13/19 04:56 05/14/19 04:47 Additional Labs: Accuchecks 05/14/19 05/14/19 05/14/19 16:05 12:08 05:57 POC Glucose 151 H 139 H 136 H 05/13/19 21:08 POC Glucose 146 H Phys Exam - Physical Examination Respiratory: no wheezing, no rales, no rhonchi, wheezing present, clear to auscultation bilateral Cardiovascular: RRR, no significant murmur, no rub, gallop, irregular Gastrointestinal: soft, non-tender, no distention, positive bowel sounds Musculoskeletal: no edema, pulses present, edema present Dx/Plan (1) Diabetes mellitus Code(s): E11.9 - TYPE 2 DIABETES MELLITUS WITHOUT COMPLICATIONS Status: Chronic Qualifiers: Diabetes mellitus type: type 2 Diabetes mellitus complication status: without complication (2) HIV (human immunodeficiency virus infection) Code(s): B20 - HUMAN IMMUNODEFICIENCY VIRUS [HIV] DISEASE Status: Chronic (3) Rheumatoid arthritis Code(s): M06.9 - RHEUMATOID ARTHRITIS, UNSPECIFIED Status: Chronic (4) Hypertension Code(s): I10 - ESSENTIAL (PRIMARY) HYPERTENSION Status: Chronic Qualifiers: Hypertension type: essential hypertension Qualified Code(s): I10 - Essential (primary) hypertension - Plan pt is medically stable, vitals and blood sugars are stable -: will sign off pt. pt will be going to rehab per Neuro/surg * . Review of Systems - Review of Systems Respiratory: negative: Cough, Dry, Shortness of Breath, Hemoptysis, SOB with Excertion, Pleuritic Pain, Sputum, Wheezing Cardiovascular: negative: chest pain, palpitations, orthopnea, paroxysmal nocturnal dyspnea, edema, light headedness, other Gastrointestinal: negative: Nausea, Vomiting, Abdominal Pain, Diarrhea, Constipation, Melena, Hematochezia, Other - Medications/Allergies Allergies/Adverse Reactions: Allergies Allergy/AdvReac Type Severity Reaction Status Date / Time sulfamethoxazole Allergy Rash Verified 05/11/19 17:41 [From Bactrim] trimethoprim [From Bactrim] Allergy Rash Verified 05/11/19 17:41 Medications: Current Medications Acetaminophen (Tylenol) 650 mg PO Q4H PRN PRN Reason: Headache/Fever or Pain Last Admin: 05/12/19 23:42 Dose: 650 mg Acetaminophen/Codeine Phosphate (Tylenol #3) 1 tab PO Q3H PRN PRN Reason: Mild Pain (1-3) Last Admin: 05/14/19 05:46 Dose: 1 tab Acetaminophen/Codeine Phosphate (Tylenol #3) 2 tab PO Q3H PRN PRN Reason: Moderate Pain (4-6) Last Admin: 05/12/19 01:14 Dose: 2 tab Al Hydroxide/Mg Hydroxide (Maalox) 30 ml PO Q4H PRN PRN Reason: Indigestion Last Admin: 05/13/19 18:00 Dose: 30 ml Atorvastatin Calcium (Lipitor) 10 mg PO [facility] Last Admin: 05/13/19 20:19 Dose: 10 mg Bisacodyl (Dulcolax) 10 mg [place] Q12H PRN PRN Reason: Constipation Celecoxib (Celebrex) 200 mg PO BID [facility] Last Admin: 05/14/19 08:37 Dose: 200 mg Dextrose/Water (Dextrose 50%) 25 gm SLOW IVP PRN PRN PRN Reason: Hypoglycemia Diphenhydramine HCl (Benadryl) 25 mg IVP Q6H PRN PRN Reason: Itching Diphenhydramine HCl (Benadryl) 25 mg PO Q6H PRN PRN Reason: Itching Efavirenz (Sustiva) 600 mg PO [facility] Last Admin: 05/13/19 20:21 Dose: 600 mg Emtricitabine/Tenofovir (Truvada) 1 tab PO [facility] Last Admin: 05/13/19 20:21 Dose: 1 tab Fluticasone Propionate (Flonase Nasal [place]) 0 gm NASAL DAILY [facility] Last Admin: 05/14/19 08:41 Dose: 2 spr Gabapentin (Neurontin) 300 mg PO BID [facility] Last Admin: 05/14/19 08:37 Dose: 300 mg Glucagon (Glucagon) 1 mg IM PRN PRN PRN Reason: Hypoglycemia Dextrose/Water (D5w) 1,000 mls @ 0 mls/hr IV .Q0M PRN PRN Reason: Hypoglycemia Insulin Human Regular (Humulin R) 0 units SC .MILD SLIDING SCALE PRN PRN Reason: Mild Correctional Scale Last Admin: 05/13/19 17:14 Dose: 2 unit Insulin Human Regular (Humulin R) 0 units SC .BEDTIME SLIDING SC PRN PRN Reason: Bedtime Correctional Scale Lisinopril (Zestril) 10 mg PO DAILY [facility] Last Admin: 05/14/19 08:38 Dose: 10 mg Magnesium Hydroxide (Milk Of Magnesium) 30 ml PO Q12H PRN PRN Reason: Constipation Magnesium Hydroxide (Milk Of Magnesium) 30 ml PO DAILYPRN PRN PRN Reason: Constipation Metformin HCl (Glucophage) 500 mg PO BID-[facility] Last Admin: 05/14/19 16:31 Dose: 500 mg Metoprolol Succinate (Toprol Xl) 50 mg PO DAILY [facility] Last Admin: 05/14/19 08:38 Dose: 50 mg Montelukast Sodium (Singulair) 10 mg PO [facility] Last Admin: 05/13/19 20:21 Dose: 10 mg Morphine Sulfate (Morphine) 4 mg SLOW IVP Q1H PRN PRN Reason: Severe Breakthrough Pain Morphine Sulfate (Morphine) 2 mg SLOW IVP Q1H PRN PRN Reason: Moderate Pain (4-6) Ondansetron HCl (Zofran) 4 mg IVP DAILYPRN PRN PRN Reason: Nausea Pantoprazole Sodium (Protonix) 40 mg PO DAILY [facility] Last Admin: 05/14/19 08:38 Dose: 40 mg Polyethylene Glycol (Miralax) 17 gm PO DAILY [facility] Last Admin: 05/14/19 08:42 Dose: Not Given Polyethylene Glycol (Miralax) 17 gm PO DAILYPRN PRN PRN Reason: Constipation Prednisone (Prednisone) 1 mg PO BID [facility] Last Admin: 05/14/19 08:37 Dose: 1 mg Prochlorperazine Edisylate (Compazine) 10 mg IM Q6H PRN PRN Reason: Nausea/Vomiting Promethazine HCl (Phenergan) 12.5 mg PO Q4H PRN PRN Reason: Nausea/Vomiting Last Admin: 05/13/19 19:07 Dose: 12.5 mg Promethazine HCl (Phenergan) 12.5 mg IM Q4H PRN PRN Reason: Nausea/Vomiting Senna/Docusate Sodium (Senokot S) 2 tab PO BID [facility] Last Admin: 05/14/19 08:42 Dose: Not Given Sodium Chloride (Flush - Normal Saline) 10 ml IVF PRN PRN PRN Reason: Saline Flush Tizanidine HCl (Zanaflex) 4 mg PO Q6H PRN PRN Reason: Muscle Spasm
[2019-05-14] MEDS: Promethazine 25 MG TAB PO PRN (18:55)
[2019-05-14] MEDS: Montelukast Sodium 10 mg Tablet PO SCH (20:13)
[2019-05-14] MEDS: Emtricitabine/Tenofovir 200-300 MG TAB PO SCH (20:14)
[2019-05-14] MEDS: Atorvastatin Calcium 10 MG TAB PO SCH (20:19)
--- NOTE | 2019-05-15 07:23 | PRG ---
DATE OF SERVICE: 05/15/2019 Ms. Millard is 4 days out from decompression and fusion of her lumbar spine. She is awaiting a bed in inpatient rehabilitation facility. If a bed opens up today, she can be transferred at any time. I think she is doing well, but has the expected recovery of a 69-year-old with rheumatoid arthritis. Job ID: [id number]
[2019-05-15] MEDS: Gabapentin 100 MG CAP PO SCH ×2 (08:23→21:03)
[2019-05-15] MEDS: Fluticasone Propionate Nasal Spray 16 gm Bottle NASAL SCH (08:23)
[2019-05-15] MEDS: Lisinopril 10 MG TAB PO SCH (08:23)
[2019-05-15] MEDS: predniSONE 1 MG TAB PO SCH ×2 (08:23→21:03)
[2019-05-15] MEDS: CeleCOXIB 100 MG CAP PO SCH ×2 (08:23→21:03)
[2019-05-15] MEDS: metFORMIN 500 MG TAB PO SCH ×2 (08:23→17:28)
[2019-05-15] MEDS: Senokot S 8.6-50 MG TAB PO SCH ×2 (08:25→21:04)
[2019-05-15] MEDS: Polyethylene Glycol 3350 17 GM Packet PO SCH (08:25)
[2019-05-15] MEDS: Emtricitabine/Tenofovir 200-300 MG TAB PO SCH (21:02)
[2019-05-15] MEDS: Montelukast Sodium 10 mg Tablet PO SCH (21:03)
[2019-05-15] MEDS: Atorvastatin Calcium 10 MG TAB PO SCH (21:04)
[2019-05-16] MEDS: Polyethylene Glycol 3350 17 GM Packet PO SCH (08:05)
[2019-05-16] MEDS: Fluticasone Propionate Nasal Spray 16 gm Bottle NASAL SCH (08:10)
[2019-05-16] MEDS: Gabapentin 100 MG CAP PO SCH (08:11)
[2019-05-16] MEDS: CeleCOXIB 100 MG CAP PO SCH (08:11)
[2019-05-16] MEDS: predniSONE 1 MG TAB PO SCH (08:11)
[2019-05-16] MEDS: metFORMIN 500 MG TAB PO SCH (08:11)
[2019-05-16] MEDS: Lisinopril 10 MG TAB PO SCH (08:12)
[2019-05-16] MEDS: Senokot S 8.6-50 MG TAB PO SCH (08:15)
--- NOTE | 2019-05-16 10:26 | PRG ---
DATE OF SERVICE: 05/16/2019 SUBJECTIVE: Ms. Millard is now postop #5 following lumbar laminectomy with fusion with Dr. Aguilera. She had been initially in acute rehab, but yesterday was walking 400 feet. Today, has minimal pain and has been ambulating well with just a walker. I discussed the possibility about home health and she is very receptive to this. I will check with Case Management to see if this is something we help her arrange and potentially could get her out as early. Job ID: [id number]
[2019-05-16 16:16] VITALS: BP 117/63; TEMP 98
== END 2019-05-16 17:35 | disposition home health service (06) | DRG 455 ==
LOC: SJJU 05-11 05:40 → SURG A 05-11 12:55
PROVIDERS: ADMIT Neurological Surgery; ATTEND Neurological Surgery
PROC: 0SG00AJ Fusion of Lumbar Vertebral Joint with Interbody Fusion Device, Posterior Approach, Anterior Column, Open Approach (ICD-10-PCS; principal; 2019-05-11)
PROC: 0SG0071 Fusion of Lumbar Vertebral Joint with Autologous Tissue Substitute, Posterior Approach, Posterior Column, Open Approach (ICD-10-PCS; 2019-05-11)
PROC: 4A11X4G Monitoring of Peripheral Nervous Electrical Activity, Intraoperative, External Approach (ICD-10-PCS; 2019-05-11)
DX: M54.16 Radiculopathy, lumbar region (principal); M43.16 Spondylolisthesis, lumbar region; M51.26 Other intervertebral disc displacement, lumbar region; Z21 Asymptomatic human immunodeficiency virus [HIV] infection status; K21.9 Gastro-esophageal reflux disease without esophagitis; N18.2 Chronic kidney disease, stage 2 (mild); I25.10 Atherosclerotic heart disease of native coronary artery without angina pectoris; E11.22 Type 2 diabetes mellitus with diabetic chronic kidney disease; I12.9 Hypertensive chronic kidney disease with stage 1 through stage 4 chronic kidney disease, or unspecified chronic kidney disease; M06.9 Rheumatoid arthritis, unspecified; E78.5 Hyperlipidemia, unspecified; Z87.891 Personal history of nicotine dependence; Z88.2 Allergy status to sulfonamides; Z88.8 Allergy status to other drugs, medicaments and biological substances; Z95.5 Presence of coronary angioplasty implant and graft; Z90.710 Acquired absence of both cervix and uterus
CPT/HCPCS: 36415; 36416; 76000; 80048; 85025; 93005; 93010; C1713; C1768; J0670; J0690; J1100; J1815; J2001; J2405; J2704; J2765; J3010; J3370; J3490; Q0163; Q0169

== ENCOUNTER 2019-07-07 14:51 | Outpatient (CLI) | payer MEDICARE ==
--- NOTE | 2019-07-07 15:09 | RAD ---
Exam: 2 views lumbar spine HISTORY: Back surgery in May 2019. Pain. COMPARISON: 03/05/2019 FINDINGS: Five lumbar type vertebral bodies. Interval placement of bilateral transpedicular screw at L4 and L5 without perihardware lucency. L4-L5 disc prosthesis. Laminectomy defect is identified Moderate degenerative disc disease L5-S1. Moderate to severe degenerative change at L2-L3 with 4.5 mm of retrolisthesis of L3 upon L4. Previously, there was 3.8 mm of retrolisthesis of L3 upon L4. IMPRESSION: 1. Interval lumbar fusion L4-L5 without perihardware lucency. 2. Grade 1 retrolisthesis of L2 upon L3, slightly worsening. Transcribed Date/Time: 07/07/2019 3:22 PM
== END 2019-07-07 14:52 | disposition home or self-care (01) ==
LOC: TBSIIMAG 14:51
PROVIDERS: ATTEND Neurological Surgery
DX: M54.5 Low back pain (principal); M43.16 Spondylolisthesis, lumbar region; Z98.1 Arthrodesis status
CPT/HCPCS: 72100

== ENCOUNTER 2020-01-06 12:08 | Outpatient (CLI) | payer MEDICARE ==
--- NOTE | 2020-01-06 13:19 | RAD ---
RADIOGRAPH RIGHT HIP 2 VIEWS: DATE: 01/06/2020. HISTORY: A 69-year-old female with right hip pain. FINDINGS: No fracture or dislocation. Femoral head contour maintained. No high-grade joint space narrowing. No subcapital or acetabular osteophytosis. Bilateral pedicle screws at lowest lumbar level, where th ere is midline laminectomy defect. IMPRESSION: 1. Unremarkable plain radiographic appearance of the right hip. 2. Status post laminectomy and posterior hardware placement at lower lumbar spine, incompletely imag ed. POS: TPC
== END 2020-01-06 12:09 | disposition home or self-care (01) ==
LOC: BICRAD 12:08
PROVIDERS: ATTEND Internal Medicine Rheumatology
DX: M25.551 Pain in right hip (principal); Z98.890 Other specified postprocedural states

== ENCOUNTER 2020-08-02 07:56 | Outpatient (CLI) | payer MEDICARE ==
--- NOTE | 2020-08-02 08:28 | MMO ---
Bilateral MAMMO Bilat Screen [facility]. CLINICAL HISTORY: Patient is 70 years old and is seen for screening. The patient has the following family history of breast cancer: cousin female, malignant (generic). The patient has no personal history of cancer. VIEWS: The views performed were: bilateral craniocaudal with tomosynthesis and bilateral mediolateral oblique with tomosynthesis. FILMS COMPARED: The present examination has been compared to prior imaging studies performed at [facility] on 12/13/2016, 12/30/2017 and 02/03/2019. This study has been interpreted with the assistance of computer-aided detection. MAMMOGRAM FINDINGS: There are scattered fibroglandular densities. There are stable benign appearing calcifications seen in both breasts. There are no suspicious masses, suspicious calcifications, or new areas of architectural distortion. IMPRESSION: THERE IS NO MAMMOGRAPHIC EVIDENCE OF MALIGNANCY. A ROUTINE FOLLOW-UP MAMMOGRAM IN 1 YEAR IS RECOMMENDED. THE RESULTS OF THIS EXAM WERE SENT TO THE PATIENT. ACR BI-RADS Category 2 - Benign finding MAMMOGRAPHY NOTE: 1. A negative mammogram report should not delay a biopsy if a dominant of clinically suspicious mass is present. 2. Approximately 10% to 15% of breast cancers are not detected by mammography. 3. Adenosis and dense breasts may obscure an underlying neoplasm. Reported by: GERI KOEHLER MD Electonically Signed: [id number]
== END 2020-08-02 07:57 | disposition home or self-care (01) ==
LOC: BICMAMMO 07:56
PROVIDERS: ATTEND Family Medicine
DX: Z12.31 Encounter for screening mammogram for malignant neoplasm of breast (principal); Z80.3 Family history of malignant neoplasm of breast
CPT/HCPCS: 77063; 77067

== ENCOUNTER 2021-02-07 13:35 | Outpatient (CLI) | payer MEDICARE | END 2021-02-07 13:36 | disposition home or self-care (01) | LOC: BICMAMMO 13:35 | PROVIDERS: ATTEND Internal Medicine Rheumatology | DX: M81.0 Age-related osteoporosis without current pathological fracture (principal) | CPT/HCPCS: 77080 ==

== ENCOUNTER 2021-03-06 08:49 | Day surgery (SDC) | payer MEDICARE ==
[2021-03-06] MEDS ORDERED: diphenhydrAMINE 25 MG CAP PO PRN (08:53)
[2021-03-06] MEDS ORDERED: Acetaminophen 500 MG TAB PO PRN (08:54)
[2021-03-06] MEDS ORDERED: diphenhydrAMINE 50 MG/ML VIAL IVP PRN (08:54)
[2021-03-06] MEDS ORDERED: Sodium Chloride 0.9% 20 ML ONE (08:58)
[2021-03-06] MEDS ORDERED: Abatacept 750 MG in Sodium Chloride 0.9% 70 ML IVPB SCH (09:00)
[2021-03-06 09:23] VITALS: BP 109/56; TEMP 97.9
== END 2021-03-06 11:00 | disposition home or self-care (01) ==
LOC: ONC/OP 08:49
PROVIDERS: ATTEND Internal Medicine Rheumatology
DX: M06.9 Rheumatoid arthritis, unspecified (principal); Z88.2 Allergy status to sulfonamides
CPT/HCPCS: 96413; J0129; J3490; Q0163

== ENCOUNTER 2021-03-20 08:37 | Day surgery (SDC) | payer MEDICARE ==
[~2021-03-20 08:37] MED LIST: Abatacept 750 MG in Sodium Chloride 0.9% 70 ML IVPB SCH; Acetaminophen 500 MG TAB PO PRN; diphenhydrAMINE 25 MG CAP PO PRN; diphenhydrAMINE 50 MG/ML VIAL IVP PRN
[2021-03-20 09:11] VITALS: BP 137/63; TEMP 97.8
[2021-03-20] MEDS ORDERED: Sodium Chloride 0.9% 20 ML ONE (09:27)
== END 2021-03-20 12:45 | disposition home or self-care (01) ==
LOC: ONC/OP 08:37
PROVIDERS: ATTEND Internal Medicine Rheumatology
DX: M06.9 Rheumatoid arthritis, unspecified (principal); Z88.1 Allergy status to other antibiotic agents; Z88.2 Allergy status to sulfonamides
CPT/HCPCS: 87077; 87086; 87186; 96413; J0129; J3490

== ENCOUNTER → 2021-04-03 | Day surgery (SDC) | payer MEDICARE ==
[~2021-04-03] MED LIST changes: +Sodium Chloride 0.9% 20 ML ONE
[2021-04-03 10:21] VITALS: BP 115/65; TEMP 97.8
== END ==
LOC: ONC/OP 08:22
PROVIDERS: ATTEND Internal Medicine Rheumatology
DX: M06.9 Rheumatoid arthritis, unspecified (principal); Z88.1 Allergy status to other antibiotic agents; Z88.2 Allergy status to sulfonamides
CPT/HCPCS: 96413; J0129; J3490

== ENCOUNTER 2021-05-01 08:53 | Day surgery (SDC) | payer MEDICARE ==
[~2021-05-01 08:53] MED LIST changes: -Abatacept 750 MG in Sodium Chloride 0.9% 70 ML IVPB SCH; +Sodium Chloride 0.9% 1,000 ML IV SCH; -Sodium Chloride 0.9% 20 ML ONE
[2021-05-01] MEDS ORDERED: Abatacept 750 MG in Sodium Chloride 0.9% 70 ML IVPB SCH (09:00)
[2021-05-01] MEDS ORDERED: Sodium Chloride 0.9% 1,000 ML IV SCH (09:00)
[2021-05-01] MEDS ORDERED: Sodium Chloride 0.9% 20 ML ONE (09:46)
[2021-05-01 11:31] VITALS: BP 139/69; TEMP 98.1
== END 2021-05-01 11:36 | disposition home or self-care (01) ==
LOC: ONC/OP 08:53
PROVIDERS: ATTEND Internal Medicine Rheumatology
DX: M05.79 Rheumatoid arthritis with rheumatoid factor of multiple sites without organ or systems involvement (principal); Z88.1 Allergy status to other antibiotic agents; Z88.2 Allergy status to sulfonamides
CPT/HCPCS: 96413; J0129; J3490

== ENCOUNTER 2021-08-21 17:12 | Emergency (ER) | payer MEDICARE ==
[2021-08-21] MEDS ORDERED: Lorazepam 1 MG TAB ONE (18:06)
[2021-08-21] MEDS ORDERED: cloNIDine 0.1 MG TAB ONE (18:06)
[2021-08-21 18:42] LABS: #Eosinphils 0.1 thou/uL (0.0-0.7); #Lymphocytes 1.9 thou/uL (1.20-3.40); #Monocytes 0.7 thou/uL (0.11-0.59); #Neutrophils 4.8 thou/uL (1.40-6.50); %Eosinophils 1.4 % (0.0-10.0); %Lymphocytes 25.9 % (21.0-51.0); %Monocytes 9.2 % (0.0-10.0); %Neutrophils 63.4 % (42.0-75.0); Hemoglobin 11.9 g/dL (12.0-16.0); Mean Corpuscular HGB CONC 33.3 g/dL (32.0-36.0); Mean Corpuscular Hemoglobin 33.5 pg (27.0-31.0); Platelet Count 291 thou/uL (130-400); RBC Distribution Width 13.1 % (11.5-14.5); Red Blood Cell (RBC) Count 3.55 mill/uL (4.20-5.40); White Blood Cell (WBC) Count 7.5 thou/uL (4.8-10.8)
[2021-08-21 19:09] LABS: ALT (SGPT) 16 U/L (8-55); AST (SGOT) 15 U/L (5-34); Albumin 3.8 g/dL (3.4-4.8); Alkaline Phosphatase 93 U/L (40-110); Anion Gap 12 mmol/L (10-20); BUN (Urea Nitrogen) 8 mg/dL (9.8-20.1); Bilirubin, Total 0.4 mg/dL (0.2-1.2); CK (CPK) 49 U/L (29-168); Calc. Creatinine Clearance 0 mL/min (70-130); Calcium 9.5 mg/dL (7.8-10.44); Carbon Dioxide 26 mmol/L (23-31); Chloride 109 mmol/L (98-107); Globulin 2.8 g/dL (2.4-3.5); Glucose 119 mg/dL (80-115); Potassium 4.3 mmol/L (3.5-5.1); Protein, Total 6.6 g/dL (5.8-8.1); Sodium 143 mmol/L (136-145)
== END 2021-08-21 19:40 | disposition home or self-care (01) ==
LOC: ERS 17:12
DX: F41.0 Panic disorder [episodic paroxysmal anxiety] (principal); I10 Essential (primary) hypertension; I25.10 Atherosclerotic heart disease of native coronary artery without angina pectoris; E11.9 Type 2 diabetes mellitus without complications; E78.5 Hyperlipidemia, unspecified; M06.9 Rheumatoid arthritis, unspecified; Z79.82 Long term (current) use of aspirin; Z79.899 Other long term (current) drug therapy; Z79.84 Long term (current) use of oral hypoglycemic drugs
CPT/HCPCS: 36415; 80053; 82550; 83880; 84484; 85025; 93005

== ENCOUNTER 2021-09-05 07:06 | Emergency (ER) | payer MEDICARE ==
[2021-09-05] MEDS ORDERED: Fentanyl 100 MCG/2 ML VIAL ONE (07:56)
[2021-09-05] MEDS ORDERED: Dexamethasone 10 MG/ML VIAL ONE (07:56)
[2021-09-05] MEDS ORDERED: Ketorolac Tromethamine 30 MG/ML VIAL ONE (07:56)
== END 2021-09-05 08:57 | disposition home or self-care (01) ==
LOC: ERS 07:06
DX: G89.29 Other chronic pain (principal); M79.651 Pain in right thigh; M51.26 Other intervertebral disc displacement, lumbar region; E11.9 Type 2 diabetes mellitus without complications; E78.5 Hyperlipidemia, unspecified; I10 Essential (primary) hypertension; Z79.899 Other long term (current) drug therapy
CPT/HCPCS: 96374; 96375; J1100; J1885; J3010

== ENCOUNTER 2021-10-10 07:36 | Outpatient (CLI) | payer MEDICARE | END 2021-10-10 07:37 | disposition home or self-care (01) | LOC: TBSIIMAG 07:36 | PROVIDERS: ATTEND Family Medicine | DX: M48.061 Spinal stenosis, lumbar region without neurogenic claudication (principal); Z98.890 Other specified postprocedural states | CPT/HCPCS: 72148 ==

== ENCOUNTER 2021-10-17 10:10 | Outpatient (CLI) | payer MEDICARE | END 2021-10-17 10:11 | disposition home or self-care (01) | LOC: BICRAD 10:10 | PROVIDERS: ATTEND Neurological Surgery | DX: M51.16 Intervertebral disc disorders with radiculopathy, lumbar region (principal); M43.16 Spondylolisthesis, lumbar region; M51.17 Intervertebral disc disorders with radiculopathy, lumbosacral region; Z98.1 Arthrodesis status | CPT/HCPCS: 72110 ==

== ENCOUNTER 2022-05-25 10:51 | Outpatient (CLI) | payer MEDICARE | END 2022-05-25 10:52 | disposition home or self-care (01) | LOC: BICCT 10:51 | PROVIDERS: ATTEND Family Medicine | DX: Z12.31 Encounter for screening mammogram for malignant neoplasm of breast (principal); F17.211 Nicotine dependence, cigarettes, in remission | CPT/HCPCS: 71271; 77063; 77067 ==

== ENCOUNTER 2024-08-28 14:31 | Observation (INO) | payer MEDICARE, OTHER ==
[~2024-08-28 14:31] MED LIST changes: -Acetaminophen 500 MG TAB PO PRN; +Iopamidol-370 76% 500 ML MDV (1 ML CHARGE) ONE; -Sodium Chloride 0.9% 1,000 ML IV SCH; -diphenhydrAMINE 25 MG CAP PO PRN; -diphenhydrAMINE 50 MG/ML VIAL IVP PRN
[2024-08-28 15:22] LABS: #Basophils 0.03 10x3/uL (0.0-0.2); %Basophils 0.5 % (0.0-1.0); %Eosinophils 2.5 % (0.0-10.0); %Lymphocytes 32.9 % (21.0-51.0); %Neutrophils 54.8 % (42.0-75.0); Hematocrit 36.3 % (36.0-47.0); Hemoglobin 11.7 g/dL (12.0-16.0); Mean Corpuscular HGB CONC 32.2 g/dL (32.0-36.0); Mean Corpuscular Hemoglobin 29.3 pg (27.0-31.0); Mean Platelet Volume 10.1 fL (7.4-10.4); Platelet Count 300 10x3/uL (130-400); RBC Distribution Width 14.1 % (11.5-14.5); Red Blood Cell (RBC) Count 3.99 mill/uL (4.20-5.40)
[2024-08-28 15:35] LABS: Prothrombin Time 12.9 sec (12.0-14.7)
[2024-08-28 15:36] LABS: PTT 31.4 sec (22.9-36.1)
[2024-08-28 15:38] LABS: Troponin I Less than 0.010 ng/mL (< 0.028)
[2024-08-28 15:39] LABS: ALT (SGPT) 16 U/L (8-55); AST (SGOT) 26 U/L (5-34); Albumin 3.1 g/dL (3.4-4.8); Alkaline Phosphatase 131 U/L (40-110); Anion Gap 13 mmol/L (10-20); BUN (Urea Nitrogen) 11 mg/dL (9.8-20.1); Bilirubin, Total 0.3 mg/dL (0.2-1.2); Calc. Creatinine Clearance 0 mL/min (70-130); Calcium 8.9 mg/dL (7.8-10.44); Carbon Dioxide 21 mmol/L (23-31); Chloride 108 mmol/L (98-107); Estimated GFR 93; Globulin 4.3 g/dL (2.4-3.5); Glucose 112 mg/dL (83-110); Magnesium 1.9 mg/dL (1.6-2.6); Potassium 3.8 mmol/L (3.5-5.1); Protein, Total 7.4 g/dL (5.8-8.1); Sodium 138 mmol/L (136-145)
[2024-08-28] MEDS ORDERED: Acetaminophen 650 MG Suppository PR PRN (17:29)
[2024-08-28] MEDS ORDERED: Ondansetron PF 4 MG/2 ML Vial IVP PRN (17:29)
[2024-08-28] MEDS ORDERED: FLUTICASONE FUROATE 50 MCG INH PRN (17:35)
[2024-08-28 18:07] LABS: Troponin I Less than 0.010 ng/mL (< 0.028)
[2024-08-28] MEDS: hydrALAZINE 20 MG/ML VIAL SLOW IVP PRN (18:25)
[2024-08-28] MEDS: Acetaminophen 325 MG TAB PO PRN (18:25)
[2024-08-28 20:13] VITALS: BMI 24.1
[2024-08-28] MEDS ORDERED: Famotidine/PF 20 mg/2ml Vial SLOW IVP SCH (21:00)
[2024-08-28] MEDS: Fioricet 325/50/40 mg Tablet PO PRN (21:03)
[2024-08-28] MEDS: Atorvastatin Calcium 40 MG TAB PO SCH (21:03)
[2024-08-28] MEDS: hydrALAZINE 10 MG TAB PO SCH (21:03)
[2024-08-28] MEDS: Pilocarpine 5 MG TAB PO SCH (21:04)
[2024-08-28 21:45] LABS: Troponin I 0.013 ng/mL (< 0.028)
[2024-08-28] MEDS: Lactated Ringer's 1,000 ML IV SCH (23:41)
[2024-08-29 04:20] LABS: #Basophils 0.03 10x3/uL (0.0-0.2); %Basophils 0.6 % (0.0-1.0); %Eosinophils 3.7 % (0.0-10.0); %Lymphocytes 41.4 % (21.0-51.0); %Monocytes 10.4 % (0.0-10.0); %Neutrophils 43.5 % (42.0-75.0); Hematocrit 31.8 % (36.0-47.0); Hemoglobin 10.1 g/dL (12.0-16.0); Mean Corpuscular HGB CONC 31.8 g/dL (32.0-36.0); Mean Corpuscular Hemoglobin 29.4 pg (27.0-31.0); Mean Corpuscular Volume 92.7 fL (78.0-98.0); Mean Platelet Volume 10.2 fL (7.4-10.4); Platelet Count 251 10x3/uL (130-400); RBC Distribution Width 14.3 % (11.5-14.5); Red Blood Cell (RBC) Count 3.43 mill/uL (4.20-5.40)
[2024-08-29 04:41] LABS: Anion Gap 9 mmol/L (10-20); BUN (Urea Nitrogen) 12 mg/dL (9.8-20.1); Calc. Creatinine Clearance 68 mL/min (70-130); Calcium 8.4 mg/dL (7.8-10.44); Carbon Dioxide 22 mmol/L (23-31); Cardiac Risk 2.8 (Less than 4.5); Chloride 111 mmol/L (98-107); Cholesterol 70 mg/dl (< 200 Desired); Estimated GFR 91; Glucose 88 mg/dL (83-110); HDL Cholesterol 25 mg/dL (>60 Neg Risk); LDL Cholesterol, Calculated 27 mg/dL; Potassium 3.1 mmol/L (3.5-5.1); Sodium 139 mmol/L (136-145); Triglycerides 91 mg/dL (Less than 150)
[2024-08-29] MEDS ORDERED: DOLUTEGRAVIR SODIUM PO SCH (09:00)
[2024-08-29] MEDS ORDERED: LAMIVUDINE PO SCH (09:00)
[2024-08-29] MEDS: Pantoprazole DR 40 MG TAB PO SCH (09:45)
[2024-08-29] MEDS: Enoxaparin 40 MG (0.4 mL) SYRINGE SC SCH (09:45)
[2024-08-29] MEDS: Clopidogrel Bisulfate 75 MG TAB PO SCH (09:45)
[2024-08-29] MEDS: Aspirin 81 mg Enteric Coated Tablet PO SCH (09:45)
[2024-08-29] MEDS: Leflunomide 10 mg Tablet PO SCH (09:52)
[2024-08-29] MEDS: Potassium Chloride 20 MEQ TAB PO SCH (13:35)
[2024-08-29 15:30] VITALS: BP 157/70; TEMP 97.4
[2024-08-29 15:34] LABS: Bacteria/HPF None Seen HPF (None Seen); Bilirubin Negative (Negative); Blood, Urine Negative (Negative); Clarity Clear (Clear); Glucose, Urine (Dipstick) Normal (Negative); Ketone, Urine Negative (Negative); Leukocyte Negative Leu/uL (Negative); Nitrite Negative (Negative); Protein, Urine (Dipstick) Negative (Neg-Trace); RBC/HPF 0-3 HPF (0-3); Specific Gravity, Urine 1.002 (1.002-1.036); Squamous Epithelial None Seen HPF (0-3); Urobilinogen Normal mg/dL (Less than 2); WBC/HPF 0-3 HPF (0-3)
[2024-08-30] MEDS ORDERED: FLU (Fluad Triv) TS24-25 (65UP)/MF59C/PF 45 MCG/0.5 ML Syringe IM ONE (09:00)
[2024-09-03] MEDS ORDERED: ABATACEPT 125 MG/ML SC SCH (17:46)
== END 2024-08-29 17:44 | disposition home or self-care (01) ==
LOC: ERS 14:31 → 2SE 17:00
PROVIDERS: ADMIT Hospitalist; ATTEND Hospitalist
DX: R47.1 Dysarthria and anarthria (principal); R41.3 Other amnesia; I10 Essential (primary) hypertension; I25.10 Atherosclerotic heart disease of native coronary artery without angina pectoris; I16.0 Hypertensive urgency; E11.9 Type 2 diabetes mellitus without complications; E78.5 Hyperlipidemia, unspecified; K21.9 Gastro-esophageal reflux disease without esophagitis; M06.9 Rheumatoid arthritis, unspecified; B20 Human immunodeficiency virus [HIV] disease; Z95.5 Presence of coronary angioplasty implant and graft; Z86.73 Personal history of transient ischemic attack (TIA), and cerebral infarction without residual deficits; Z90.710 Acquired absence of both cervix and uterus; Z98.890 Other specified postprocedural states; Z88.1 Allergy status to other antibiotic agents; Z88.2 Allergy status to sulfonamides; Z79.84 Long term (current) use of oral hypoglycemic drugs; Z79.82 Long term (current) use of aspirin; Z79.899 Other long term (current) drug therapy
CPT/HCPCS: 70450; 70496; 70498; 70551; 71045; 80048; 80053; 80061; 81001; 82962; 83735; 84484 ×2; 85025 ×2; 85610; 85730; 93005; 96372; 96374; 97116; 99285; G0378 ×3; J0360; J1650; J7120; Q9967; 36415; 36416

== ENCOUNTER 2024-09-29 10:19 | Outpatient (CLI) | payer MEDICARE | END 2024-09-29 10:20 | disposition home or self-care (01) | LOC: BICRAD 10:19 | PROVIDERS: ATTEND Family Medicine | DX: M79.671 Pain in right foot (principal); M19.071 Primary osteoarthritis, right ankle and foot; M79.672 Pain in left foot; M19.072 Primary osteoarthritis, left ankle and foot | CPT/HCPCS: 36415; 80053; 84550; 85025; 86140 ==

== ENCOUNTER 2025-06-15 10:45 | Inpatient (IN) | payer OTHER ==
[2025-06-15 11:21] LABS: #Basophils 0.03 10x3/uL (0.0-0.2); #Eosinophils 0.12 10x3/uL (0.0-0.7); #Monocytes 0.57 10x3/uL (0.11-0.59); #Neutrophils 4.02 10x3/uL (1.40-6.50); %Basophils 0.5 % (0.0-1.0); %Eosinophils 1.8 % (0.0-10.0); %Lymphocytes 28.2 % (21.0-51.0); %Monocytes 8.6 % (0.0-10.0); %Neutrophils 60.6 % (42.0-75.0); Hematocrit 33.9 % (36.0-47.0); Hemoglobin 10.9 g/dL (12.0-16.0); Mean Corpuscular Hemoglobin 30.5 pg (27.0-31.0); Mean Corpuscular Volume 95.0 fL (78.0-98.0); Platelet Count 233 10x3/uL (130-400); Red Blood Cell (RBC) Count 3.57 mill/uL (4.20-5.40); White Blood Cell (WBC) Count 6.63 10x3/uL (4.8-10.8)
[2025-06-15] MEDS ORDERED: hydrALAZINE 20 MG/ML VIAL ONE (11:31)
[2025-06-15] MEDS ORDERED: Aspirin Chewable 81 MG TAB ONE (11:31)
[2025-06-15] MEDS ORDERED: Iopamidol-370 76% 500 ML MDV (1 ML CHARGE) ONE (11:35)
[2025-06-15 11:41] LABS: ALT (SGPT) 14 U/L (Less than 34); AST (SGOT) 25 U/L (11-34); Albumin 3.1 g/dL (3.1-4.5); Alkaline Phosphatase 123 U/L (40-110); Anion Gap 12 mmol/L (10-20); BUN (Urea Nitrogen) 8 mg/dL (9.8-20.1); Bilirubin, Total 0.3 mg/dL (0.3-1.2); Calc. Creatinine Clearance 0 mL/min (70-130); Calcium 8.7 mg/dL (7.8-10.44); Carbon Dioxide 25 mmol/L (23-31); Chloride 108 mmol/L (98-107); Globulin 3.8 g/dL (2.4-3.5); Glucose 75 mg/dL (83-110); Lipase 19 U/L (8-78); Magnesium 1.8 mg/dL (1.6-2.6); Potassium 3.5 mmol/L (3.5-5.1); Sodium 141 mmol/L (136-145)
[2025-06-15 11:44] LABS: Troponin I 0.012 ng/mL (< 0.028)
[2025-06-15 15:04] LABS: Troponin I 0.010 ng/mL (< 0.028)
[2025-06-15] MEDS ORDERED: Nitroglycerin 0.4 MG TAB (25 Tab Bottle) SL PRN (17:54)
[2025-06-15] MEDS ORDERED: Glucagon 1 MG/ML KIT IM PRN (18:42)
[2025-06-15] MEDS ORDERED: Dextrose 50% Abboject 50 ML SYRINGE SLOW IVP PRN (18:42)
[2025-06-15 19:44] LABS: Troponin I 0.015 ng/mL (< 0.028)
[2025-06-15] MEDS: Aspirin 325 MG TAB PO SCH (20:25)
[2025-06-15] MEDS ORDERED: Non-Formulary Item 1 EACH (Dolutegravir Sodium/Lamivudine [Dovato 50-300 Mg Tablet] 1 EAC PO SCH (21:00)
[2025-06-15 21:20] LABS: Troponin I 0.013 ng/mL (< 0.028)
[2025-06-15] MEDS: Famotidine 20 MG TAB PO SCH (21:33)
[2025-06-15] MEDS: DOVATO PO SCH (21:33)
[2025-06-15 22:09] VITALS: BMI 22.9
[2025-06-16 05:54] LABS: Cardiac Risk 2.8 (Less than 4.5); Cholesterol 65.0 mg/dl (< 200 Desired); HDL Cholesterol 23.0 mg/dL (>60 Neg Risk); LDL Cholesterol, Calculated 21.0 mg/dL; Triglycerides 107.0 mg/dL (Less than 150)
[2025-06-16] MEDS: Aspirin Chewable 81 MG TAB PO SCH (07:05)
[2025-06-16] MEDS: Metoprolol Succinate XL 50 MG ER.TAB PO SCH (07:05)
[2025-06-16] MEDS: Lisinopril 20 MG TAB PO SCH (07:05)
[2025-06-16] MEDS ORDERED: LEFLUNOMIDE 20 MG PO SCH (09:00)
[2025-06-16] MEDS: Enoxaparin 40 MG (0.4 mL) SYRINGE SC SCH (09:52)
[2025-06-16] MEDS: DOVATO PO SCH (20:25)
[2025-06-17] MEDS: hydrALAZINE 20 MG/ML VIAL SLOW IVP SCH (04:20)
[2025-06-17] MEDS: Bisoprolol Fumarate/HCTZ 10 mg/6.25 mg Tablet PO SCH (09:15)
[2025-06-18 05:19] LABS: Anion Gap 13 mmol/L (10-20); BUN (Urea Nitrogen) 15 mg/dL (9.8-20.1); Calc. Creatinine Clearance 70 mL/min (70-130); Calcium 8.3 mg/dL (7.8-10.44); Carbon Dioxide 22 mmol/L (23-31); Chloride 106 mmol/L (98-107); Glucose 91 mg/dL (83-110); Potassium 3.5 mmol/L (3.5-5.1); Sodium 137 mmol/L (136-145)
[2025-06-18] MEDS ORDERED: Bisoprolol Fumarate/HCTZ 10 mg/6.25 mg Tablet PO SCH (06:16)
[2025-06-18 08:08] VITALS: TEMP 97.8
[2025-06-18] MEDS: Bisoprolol Fumarate/HCTZ 10 mg/6.25 mg Tablet PO SCH (10:44)
[2025-06-18 15:11] VITALS: BP 125/63
== END 2025-06-18 16:09 | disposition home or self-care (01) | DRG 305 ==
LOC: ERS 10:45 → OBS 17:57 → OBSVTOIN 06-16 13:15
PROVIDERS: ADMIT Family Medicine; ATTEND Hospitalist
DX: I10 Essential (primary) hypertension (principal); B20 Human immunodeficiency virus [HIV] disease; E78.5 Hyperlipidemia, unspecified; I25.10 Atherosclerotic heart disease of native coronary artery without angina pectoris; M06.9 Rheumatoid arthritis, unspecified; F17.210 Nicotine dependence, cigarettes, uncomplicated; E11.9 Type 2 diabetes mellitus without complications; I35.1 Nonrheumatic aortic (valve) insufficiency; Z86.73 Personal history of transient ischemic attack (TIA), and cerebral infarction without residual deficits; Z90.710 Acquired absence of both cervix and uterus; Z98.890 Other specified postprocedural states; Z98.61 Coronary angioplasty status; Z82.49 Family history of ischemic heart disease and other diseases of the circulatory system; Z83.3 Family history of diabetes mellitus; Z88.2 Allergy status to sulfonamides; Z88.8 Allergy status to other drugs, medicaments and biological substances; Z79.51 Long term (current) use of inhaled steroids; Z79.899 Other long term (current) drug therapy; Z79.82 Long term (current) use of aspirin
CPT/HCPCS: 36415; 36416; 71045; 71275; 74174; 78452; 80048; 80053; 80061; 83036; 83690; 83735; 84443; 84484; 85025; 85379; 93005; 93017; 94760; 96372; 96374; A9502; G0378; J0360; J1650; J2270; J2785; Q9967

== ENCOUNTER 2025-06-29 09:22 | Outpatient (CLI) | payer OTHER | END 2025-06-29 09:23 | disposition home or self-care (01) | LOC: BICRAD 09:22 | PROVIDERS: ATTEND Family Medicine | DX: M47.22 Other spondylosis with radiculopathy, cervical region (principal) | CPT/HCPCS: 72040 ==

== ENCOUNTER 2025-07-09 11:39 | Outpatient (CLI) | payer OTHER | END 2025-07-09 11:40 | disposition home or self-care (01) | LOC: MRI 11:39 | PROVIDERS: ATTEND Family Medicine | DX: M54.12 Radiculopathy, cervical region (principal); M48.02 Spinal stenosis, cervical region | CPT/HCPCS: 72141 ==